=== PATIENT | female | born 1945 ===

== ENCOUNTER → 2016-12-26 | Outpatient (CLI) | payer OTHER ==
--- NOTE | 2016-12-26 13:21 | DIAGNOSTIC IMAGING REPORT ---
LEFT ANKLE MIN 3 VIEWS HISTORY: 71 years-old Female AVULSION FRACTURE OF LEFT DISTAL FIBULA COMPARISON: None available TECHNIQUE: 3 views of the left ankle FINDINGS: Ankle mortise is well-maintained and anatomically positioned. Talar dome is smooth without osteochondral defect. There is a linear 4 mm bone fragment adjacent to the distal fibula with adjacent moderate soft tissue swelling suggesting acute avulsion fracture. Small ankle joint effusion is noted. There is moderate spurring about the calcaneus with mild globular thickening in the region of the distal Achilles tendon. Vascular calcifications noted. IMPRESSION: 1. Moderate lateral ankle soft tissue swelling with probable small acute avulsion fracture of the distal fibula. 2. Prominent spurring about the calcaneus with mild globular thickening of the distal Achilles tendon suggesting associated tendinopathy. 3. Peripheral vascular disease. The above report was generated using voice recognition software. It may contain grammatical, syntax or spelling errors. Electronically signed by: Josh Michael M.D. 12/26/2016 1:19 PM Dictated Date/Time: 12/26/2016 1:18 PM
== END | disposition home or self-care (01) ==
LOC: C.RDSM 07:00
PROVIDERS: ATTEND Physician Assistant
DX: S82.822A Torus fracture of lower end of left fibula, initial encounter for closed fracture (principal); X58.XXXA Exposure to other specified factors, initial encounter

== ENCOUNTER → 2017-01-16 | Outpatient (CLI) | payer OTHER ==
--- NOTE | 2017-01-16 13:09 | DIAGNOSTIC IMAGING REPORT ---
LEFT ANKLE MIN 3 VIEWS CLINICAL HISTORY: 71 years-old Female presenting with AVULSION FX LEFT ANKLE. TECHNIQUE: Frontal, mortise, and lateral views of the left ankle were obtained. COMPARISON: 12/26/2016. FINDINGS: No acute fracture or malalignment. Osseous fragment at the inferior pole of the medial malleolus is again evident. Ankle mortise intact. Inferior calcaneal bone spur noted. Regional soft tissues normal. IMPRESSION: Osseous fragment at the inferior pole of the medial malleolus unchanged appearance of likely indicative of an avulsion fracture. No other fracture or malalignment. No change. Electronically signed by: Torrey Boyce M.D. 01/16/2017 1:08 PM Dictated Date/Time: 01/16/2017 1:06 PM
== END | disposition home or self-care (01) ==
LOC: C.RDSM 17:09
PROVIDERS: ATTEND Physician Assistant
DX: S82.55XA Nondisplaced fracture of medial malleolus of left tibia, initial encounter for closed fracture (principal); X58.XXXA Exposure to other specified factors, initial encounter